=== PATIENT | female | born 1995 | race Caucasian/White ===

== ENCOUNTER 2018-01-31 11:28 | Emergency (ER) | payer BC ==
[2018-01-31] MEDS: ONDANSETRON 4 MG INJ IV (13:51)
[2018-01-31] MEDS: morphine 4 MG/ML VIAL IV (13:52)
[2018-01-31] MEDS: SOD CHLORIDE 0.9% 1,000 ML IV (13:52)
[2018-01-31 14:20] LABS: ADD MAN DIFF? NO
[2018-01-31 14:26] LABS: WHITE BLOOD COUNT 10.5 10^3/ul (4.8-10.8)
[2018-01-31 14:26] LABS: BASOPHIL # 0.1 10^3/ul (0.0-0.1); BASOPHILS % 0.7 % (0.0-2.0); EOSINOPHILS # 0.3 10^3/ul (0.0-0.5); EOSINOPHILS % 3.1 % (0.0-7.0); HEMATOCRIT 44.9 % (37.0-47.0); HEMOGLOBIN 14.8 g/dl (12.0-16.0); LYMPHOCYTES # 3.3 10^3/ul (0.8-2.9); LYMPHOCYTES % 31.6 % (15.0-51.0); MEAN CORPUSCULAR HEMOGLOBIN 29.5 pg (29.0-33.0); MEAN CORPUSCULAR VOLUME 89.6 fl (82.0-101.0); MEAN PLATELET VOLUME 12.2 fl (7.4-10.4); MONOCYTE # 0.5 10^3/ul (0.3-0.9); MONOCYTES % 5.1 % (0.0-11.0); NEUTROPHIL # 6.2 10^3/ul (1.6-7.5); NEUTROPHILS % 59.2 % (39.0-77.0); PLATELET COUNT 300 10^3/UL (140-415); RED BLOOD COUNT 5.01 10^6/ul (4.20-5.40); RED CELL DISTRIBUTION WIDTH 12.2 % (11.5-14.5)
[2018-01-31] MEDS: KETOROLAC 30 MG INJ IV (14:28)
[2018-01-31 14:42] LABS: ALANINE AMINOTRANSFERASE 70 IU/L (13-69); ALBUMIN 5.3 g/dl (3.3-4.9); ALBUMIN/GLOBULIN RATIO 1.23; ALKALINE PHOSPHATASE 74 IU/L (42-121); ANION GAP 20 (8-16); ASPARTATE AMINO TRANSFERASE 57 IU/L (15-46); BILIRUBIN,INDIRECT 0.3 mg/dl (0-1.1); BILIRUBIN,TOTAL 0.3 mg/dl (0.2-1.3); BLOOD UREA NITROGEN 13 mg/dl (7-20); CARBON DIOXIDE 25 mmol/L (21-31); CHLORIDE 105 mmol/L (97-110); CREATININE 0.59 mg/dl (0.44-1.00); GLUCOSE 90 mg/dl (70-220); LIPASE 51 U/L (23-300); POTASSIUM 4.5 mmol/L (3.5-5.1); SODIUM 145 mmol/L (135-144); TOTAL PROTEIN 9.6 g/dl (6.1-8.1)
[2018-01-31] MEDS: morphine 2 MG INJ IV (15:52)
[2018-01-31 15:55] LABS: ADD UMIC YES; UR ASCORBIC ACID NEGATIVE (NEGATIVE); UR BILIRUBIN (Dip) NEGATIVE (NEGATIVE); UR BLOOD (Dip) 1+ mg/dL (NEGATIVE); UR CLARITY CLEAR (CLEAR); UR COLOR YELLOW (YELLOW); UR GLUCOSE (Dip) NEGATIVE (NEGATIVE); UR KETONES (Dip) NEGATIVE (NEGATIVE); UR LEUKOCYTE ESTERASE (Dip) NEGATIVE Leu/ul (NEGATIVE); UR MUCUS FEW /HPF (NONE SEEN); UR NITRITE (Dip) NEGATIVE (NEGATIVE); UR RBC 2 /HPF (0-5); UR SPECIFIC GRAVITY (Dip) 1.018 (1.003-1.030); UR TOTAL PROTEIN (Dip) NEGATIVE (NEGATIVE); UR UROBILINOGEN (Dip) NEGATIVE (NEGATIVE); UR WBC 1 /HPF (0-5)
== END 2018-01-31 16:35 | disposition home or self-care (01) ==
LOC: FTE 11:28
DX: R51 Headache (principal); R68.83 Chills (without fever)
CPT/HCPCS: 70450; 80053; 81001; 81025; 83690; 84703; 85025; 87400; 96374; 96375; 96376; 99285-25

== ENCOUNTER 2018-02-04 13:29 | Emergency (ER) | payer BC ==
[2018-02-04] MEDS: DICYCLOMINE 10 MG CAP PO (15:32)
[2018-02-04] MEDS: ONDANSETRON 4 MG INJ IV (15:32)
[2018-02-04] MEDS: SOD CHLORIDE 0.9% 1,000 ML IV (15:32)
[2018-02-04] MEDS: HYDROmorphONE 0.5 MG/0.5 ML SYG IV (15:33)
[2018-02-04 15:40] LABS: ADD UMIC YES; UR ASCORBIC ACID NEGATIVE (NEGATIVE); UR BACTERIA FEW /HPF (NONE SEEN); UR BILIRUBIN (Dip) NEGATIVE (NEGATIVE); UR BLOOD (Dip) 1+ mg/dL (NEGATIVE); UR CLARITY SLIGHTLY CLOUDY (CLEAR); UR COLOR YELLOW (YELLOW); UR GLUCOSE (Dip) NEGATIVE (NEGATIVE); UR KETONES (Dip) NEGATIVE (NEGATIVE); UR LEUKOCYTE ESTERASE (Dip) 3+ Leu/ul (NEGATIVE); UR MUCUS FEW /HPF (NONE SEEN); UR NITRITE (Dip) NEGATIVE (NEGATIVE); UR RBC 1 /HPF (0-5); UR SQUAMOUS EPITHELIAL CELL MODERATE /HPF (FEW); UR TOTAL PROTEIN (Dip) 1+ mg/dl (NEGATIVE); UR UROBILINOGEN (Dip) NEGATIVE (NEGATIVE); UR WBC 5 /HPF (0-5)
[2018-02-04 15:47] LABS: ADD MAN DIFF? NO
[2018-02-04 15:48] LABS: WHITE BLOOD COUNT 10.2 10^3/ul (4.8-10.8)
[2018-02-04 15:48] LABS: BASOPHIL # 0.1 10^3/ul (0.0-0.1); BASOPHILS % 0.9 % (0.0-2.0); EOSINOPHILS # 0.2 10^3/ul (0.0-0.5); EOSINOPHILS % 1.8 % (0.0-7.0); HEMOGLOBIN 12.8 g/dl (12.0-16.0); LYMPHOCYTES # 3.6 10^3/ul (0.8-2.9); LYMPHOCYTES % 35.7 % (15.0-51.0); MEAN CORPUSCULAR HEMOGLOBIN 30.3 pg (29.0-33.0); MEAN CORPUSCULAR HGB CONC 34.6 g/dl (32.0-37.0); MEAN CORPUSCULAR VOLUME 87.5 fl (82.0-101.0); MEAN PLATELET VOLUME 10.7 fl (7.4-10.4); MONOCYTE # 0.6 10^3/ul (0.3-0.9); NEUTROPHIL # 5.7 10^3/ul (1.6-7.5); NEUTROPHILS % 55.4 % (39.0-77.0); PLATELET COUNT 323 10^3/UL (140-415); RED BLOOD COUNT 4.23 10^6/ul (4.20-5.40); RED CELL DISTRIBUTION WIDTH 12.4 % (11.5-14.5)
[2018-02-04 16:09] LABS: ALANINE AMINOTRANSFERASE 46 IU/L (13-69); ALBUMIN 4.5 g/dl (3.3-4.9); ALBUMIN/GLOBULIN RATIO 1.45; ALKALINE PHOSPHATASE 53 IU/L (42-121); ANION GAP 18 (8-16); ASPARTATE AMINO TRANSFERASE 25 IU/L (15-46); BLOOD UREA NITROGEN 12 mg/dl (7-20); CALCIUM 9.6 mg/dl (8.4-10.2); CARBON DIOXIDE 27 mmol/L (21-31); CHLORIDE 105 mmol/L (97-110); CREATININE 0.55 mg/dl (0.44-1.00); GLUCOSE 79 mg/dl (70-220); SODIUM 146 mmol/L (135-144); TOTAL PROTEIN 7.6 g/dl (6.1-8.1)
[2018-02-04 16:38] LABS: LIPASE 83 U/L (23-300)
== END 2018-02-04 17:53 | disposition home or self-care (01) ==
LOC: FTE 13:29
DX: R10.11 Right upper quadrant pain (principal)
CPT/HCPCS: 36415; 76705; 80053; 81001; 81025; 83690; 85025; 96374; 96375; 99285-25

== ENCOUNTER 2018-02-05 00:59 | Emergency (ER) | payer SELFPAY, BC | END 2018-02-05 04:30 | disposition left against medical advice (07) | LOC: E/R 00:59 | DX: Z53.21 Procedure and treatment not carried out due to patient leaving prior to being seen by health care provider (principal) ==

== ENCOUNTER 2018-03-28 09:22 | Inpatient (IN) | payer BC ==
[2018-03-28 10:42] LABS: ADD MAN DIFF? NO
[2018-03-28 10:44] LABS: BASOPHIL # 0.1 10^3/ul (0.0-0.1); BASOPHILS % 0.8 % (0.0-2.0); EOSINOPHILS % 11.1 % (0.0-7.0); HEMATOCRIT 36.6 % (37.0-47.0); HEMOGLOBIN 12.5 g/dl (12.0-16.0); LYMPHOCYTES # 2.4 10^3/ul (0.8-2.9); LYMPHOCYTES % 27.2 % (15.0-51.0); MEAN CORPUSCULAR HEMOGLOBIN 30.9 pg (29.0-33.0); MEAN CORPUSCULAR HGB CONC 34.2 g/dl (32.0-37.0); MEAN CORPUSCULAR VOLUME 90.4 fl (82.0-101.0); MEAN PLATELET VOLUME 11.1 fl (7.4-10.4); MONOCYTE # 0.5 10^3/ul (0.3-0.9); MONOCYTES % 5.4 % (0.0-11.0); NEUTROPHIL # 4.9 10^3/ul (1.6-7.5); NEUTROPHILS % 55.3 % (39.0-77.0); PLATELET COUNT 312 10^3/UL (140-415); RED BLOOD COUNT 4.05 10^6/ul (4.20-5.40); RED CELL DISTRIBUTION WIDTH 12.6 % (11.5-14.5)
[2018-03-28 10:44] LABS: WHITE BLOOD COUNT 8.8 10^3/ul (4.8-10.8)
[2018-03-28] MEDS: CEFAZOLIN 2 GM/50 ML (PMX) 50 ML IVPB ×2 (11:00→20:00)
[2018-03-28 11:01] LABS: GLUCOSE 100 mg/dl (70-220)
[2018-03-28] MEDS ORDERED: ROPIVACAINE 0.5 % 30 ML VIAL (12:00)
[2018-03-28] MEDS ORDERED: DEXAMETHASONE 4 MG/ML 1 ML INJ (12:00)
[2018-03-28] MEDS ORDERED: LIDOCAINE 2% (SDV) 5 ML INJ (12:00)
[2018-03-28] MEDS ORDERED: CEFAZOLIN 1 GM INJ (12:00)
[2018-03-28] MEDS ORDERED: PROPOFOL 200 MG INJ (12:00)
[2018-03-28] MEDS ORDERED: PROPOFOL 20 ML ×2 (12:03→13:42)
[2018-03-28] MEDS ORDERED: FENTAnyl 50 MCG/ML VIAL (13:51)
[2018-03-28] MEDS ORDERED: DIPHENHYDRAMINE 50 MG INJ (14:40)
[2018-03-28] MEDS: DIPHENHYDRAMINE 50 MG INJ IV (14:58)
[2018-03-28] MEDS ORDERED: NALOXONE (0.4 MG/ML) INJ IV (15:00)
[2018-03-28] MEDS ORDERED: METOCLOPRAMIDE 10 MG INJ IV (15:00)
[2018-03-28] MEDS ORDERED: ONDANSETRON 4 MG INJ IV ×2 (15:00)
[2018-03-28] MEDS ORDERED: OXYCODONE/ACETAMINOPHEN (5/325) TAB PO (15:00)
[2018-03-28] MEDS ORDERED: CEFAZOLIN 1 GM/50 ML (PMX) 50 ML IVPB (15:00)
[2018-03-28] MEDS ORDERED: HYDROmorphONE (0.2 MG/ML) 10ML SYG IV (15:00)
[2018-03-28] MEDS ORDERED: FENTAnyl 50 MCG/ML VIAL IV ×2 (15:00)
[2018-03-28] MEDS: HYDROmorphONE (0.2 MG/ML) 10ML SYG IV ×2 (15:02→15:24)
[2018-03-28] MEDS: HYDROmorphONE 0.5 MG/0.5 ML SYG IV ×3 (16:23→21:48)
[2018-03-28] MEDS: HYDROCODONE/APAP (10/325) TAB GTB (18:14)
[2018-03-28] MEDS ORDERED: KETOROLAC 15 MG INJ IV (20:30)
[2018-03-28] MEDS: CYCLOBENZAPRINE 10 MG TAB PO (20:47)
[2018-03-28] MEDS: oxyCODONE 5 MG TAB PO (21:19)
[2018-03-28] MEDS: morphine (ER) 15 MG TAB PO (22:50)
[2018-03-29] MEDS ORDERED: DIAZEPAM 5 MG TAB PO (01:30)
[2018-03-29] MEDS: HYDROmorphONE 0.5 MG/0.5 ML SYG IV ×8 (01:30→21:55)
[2018-03-29] MEDS: CEFAZOLIN 2 GM/50 ML (PMX) 50 ML IVPB (03:17)
[2018-03-29] MEDS: oxyCODONE 5 MG TAB PO ×3 (03:17→19:46)
[2018-03-29] MEDS: morphine (ER) 15 MG TAB PO (08:57)
[2018-03-29] MEDS: CYCLOBENZAPRINE 10 MG TAB PO (10:23)
[2018-03-29] MEDS ORDERED: DOCUSATE SODIUM 100 MG CAP PO (12:00)
[2018-03-29] MEDS: GABAPENTIN 100 MG CAP PO ×2 (15:10→20:49)
[2018-03-29] MEDS: morphine (ER) 30 MG TAB PO (20:49)
[2018-03-30] MEDS: HYDROmorphONE 0.5 MG/0.5 ML SYG IV ×8 (01:37→23:31)
[2018-03-30] MEDS: GABAPENTIN 100 MG CAP PO ×3 (08:30→20:45)
[2018-03-30] MEDS: morphine (ER) 30 MG TAB PO ×2 (08:35→20:41)
[2018-03-30] MEDS: oxyCODONE 5 MG TAB PO ×2 (14:11→20:41)
[2018-03-30] MEDS: CYCLOBENZAPRINE 10 MG TAB PO (23:30)
[2018-03-31] MEDS: HYDROmorphONE 0.5 MG/0.5 ML SYG IV ×4 (08:14→22:28)
[2018-03-31] MEDS: GABAPENTIN 100 MG CAP PO ×3 (08:15→20:39)
[2018-03-31] MEDS: morphine (ER) 30 MG TAB PO ×2 (09:48→20:40)
[2018-03-31] MEDS: oxyCODONE 5 MG TAB PO ×3 (11:19→23:38)
[2018-03-31] MEDS: CYCLOBENZAPRINE 10 MG TAB PO (21:35)
[2018-03-31] MEDS: traMADol 50 MG TAB PO (21:38)
[2018-04-01] MEDS: HYDROmorphONE 0.5 MG/0.5 ML SYG IV ×9 (01:17→23:34)
[2018-04-01] MEDS: oxyCODONE 5 MG TAB PO ×3 (05:05→18:43)
[2018-04-01] MEDS: morphine (ER) 30 MG TAB PO ×2 (08:48→21:58)
[2018-04-01] MEDS: GABAPENTIN 100 MG CAP PO ×3 (08:48→20:37)
[2018-04-01] MEDS: HEPARIN 5,000 UNIT/0.5 ML VIAL SC ×2 (14:54→21:59)
[2018-04-01 15:17] LABS: ADD MAN DIFF? NO
[2018-04-01 15:20] LABS: BASOPHIL # 0.1 10^3/ul (0.0-0.1); EOSINOPHILS # 0.4 10^3/ul (0.0-0.5); EOSINOPHILS % 4.7 % (0.0-7.0); HEMATOCRIT 40.2 % (37.0-47.0); HEMOGLOBIN 13.3 g/dl (12.0-16.0); LYMPHOCYTES % 37.6 % (15.0-51.0); MEAN CORPUSCULAR HEMOGLOBIN 30.2 pg (29.0-33.0); MEAN CORPUSCULAR HGB CONC 33.1 g/dl (32.0-37.0); MEAN CORPUSCULAR VOLUME 91.4 fl (82.0-101.0); MEAN PLATELET VOLUME 11.1 fl (7.4-10.4); MONOCYTE # 0.4 10^3/ul (0.3-0.9); NEUTROPHIL # 4.1 10^3/ul (1.6-7.5); NEUTROPHILS % 51.5 % (39.0-77.0); PLATELET COUNT 394 10^3/UL (140-415); RED CELL DISTRIBUTION WIDTH 12.4 % (11.5-14.5)
[2018-04-02] MEDS: HYDROmorphONE 0.5 MG/0.5 ML SYG IV ×3 (04:58→12:52)
[2018-04-02] MEDS: HEPARIN 5,000 UNIT/0.5 ML VIAL SC ×3 (06:10→21:59)
[2018-04-02] MEDS: oxyCODONE 5 MG TAB PO ×3 (06:15→20:45)
[2018-04-02] MEDS: GABAPENTIN 100 MG CAP PO ×3 (09:27→20:46)
[2018-04-02] MEDS: morphine (ER) 30 MG TAB PO ×2 (09:28→20:46)
[2018-04-02] MEDS: traMADol 50 MG TAB PO (16:49)
[2018-04-02] MEDS: CYCLOBENZAPRINE 10 MG TAB PO (16:49)
[2018-04-03] MEDS: oxyCODONE 5 MG TAB PO ×2 (02:45→10:35)
[2018-04-03] MEDS: HEPARIN 5,000 UNIT/0.5 ML VIAL SC ×2 (06:08→13:32)
[2018-04-03] MEDS: morphine (ER) 30 MG TAB PO (09:20)
[2018-04-03] MEDS: GABAPENTIN 100 MG CAP PO ×2 (09:20→13:32)
== END 2018-04-03 15:15 | disposition home or self-care (01) | DRG 505 ==
LOC: SDS 09:22 → MS1 16:18 → SDS 16:03 → MS1 16:03
PROVIDERS: Orthopaedic Surgery
PROC: 0QSL04Z Reposition Right Tarsal with Internal Fixation Device, Open Approach (ICD-10-PCS; principal; 2018-03-28 11:29)
DX: S92.141A Displaced dome fracture of right talus, initial encounter for closed fracture (principal); V89.2XXA Person injured in unspecified motor-vehicle accident, traffic, initial encounter; G89.18 Other acute postprocedural pain
CPT/HCPCS: 73610-RT; 82947; 84703; 85025; 97110; 97162; 97530

== ENCOUNTER 2018-04-12 11:46 | Inpatient (IN) | payer BC ==
[2018-04-12] MEDS: HYDROmorphONE 1 MG/5 ML IV SYRINGE IV (12:33)
[2018-04-12] MEDS: ONDANSETRON 4 MG INJ IV ×3 (12:33→20:51)
[2018-04-12] MEDS: HYDROmorphONE 0.5 MG/0.5 ML SYG IM (13:26)
[2018-04-12 13:32] LABS: ADD MAN DIFF? NO
[2018-04-12 13:34] LABS: BASOPHIL # 0.1 10^3/ul (0.0-0.1); BASOPHILS % 0.9 % (0.0-2.0); EOSINOPHILS # 0.6 10^3/ul (0.0-0.5); EOSINOPHILS % 8.1 % (0.0-7.0); HEMATOCRIT 40.2 % (37.0-47.0); HEMOGLOBIN 13.3 g/dl (12.0-16.0); LYMPHOCYTES # 2.4 10^3/ul (0.8-2.9); LYMPHOCYTES % 35.1 % (15.0-51.0); MEAN CORPUSCULAR HEMOGLOBIN 30.2 pg (29.0-33.0); MEAN CORPUSCULAR HGB CONC 33.1 g/dl (32.0-37.0); MEAN CORPUSCULAR VOLUME 91.2 fl (82.0-101.0); MEAN PLATELET VOLUME 10.6 fl (7.4-10.4); MONOCYTE # 0.4 10^3/ul (0.3-0.9); MONOCYTES % 5.8 % (0.0-11.0); NEUTROPHIL # 3.4 10^3/ul (1.6-7.5); NEUTROPHILS % 49.8 % (39.0-77.0); PLATELET COUNT 377 10^3/UL (140-415); RED BLOOD COUNT 4.41 10^6/ul (4.20-5.40); RED CELL DISTRIBUTION WIDTH 12.1 % (11.5-14.5)
[2018-04-12 13:34] LABS: WHITE BLOOD COUNT 6.8 10^3/ul (4.8-10.8)
[2018-04-12 13:51] LABS: ALANINE AMINOTRANSFERASE 40 IU/L (13-69); ALBUMIN 4.5 g/dl (3.3-4.9); ALBUMIN/GLOBULIN RATIO 1.15; ALKALINE PHOSPHATASE 69 IU/L (42-121); ANION GAP 18 (8-16); ASPARTATE AMINO TRANSFERASE 34 IU/L (15-46); BILIRUBIN,INDIRECT 0.3 mg/dl (0-1.1); BILIRUBIN,TOTAL 0.3 mg/dl (0.2-1.3); BLOOD UREA NITROGEN 9 mg/dl (7-20); CALCIUM 9.6 mg/dl (8.4-10.2); CARBON DIOXIDE 26 mmol/L (21-31); CHLORIDE 106 mmol/L (97-110); CREATININE 0.56 mg/dl (0.44-1.00); GLUCOSE 107 mg/dl (70-220); LIPASE 133 U/L (23-300); POTASSIUM 4.3 mmol/L (3.5-5.1); SODIUM 146 mmol/L (135-144); TOTAL PROTEIN 8.4 g/dl (6.1-8.1)
[2018-04-12] MEDS: SOD CHLORIDE 0.9% 1,000 ML IV ×3 (16:05→21:09)
[2018-04-12] MEDS: HYDROmorphONE 0.5 MG/0.5 ML SYG IV ×3 (16:27→23:38)
[2018-04-12] MEDS ORDERED: ACETAMINOPHEN 325 MG TAB PO ×2 (16:30→18:30)
[2018-04-12] MEDS ORDERED: NACL 0.9% 3 ML SYG IV (16:30)
[2018-04-12 16:52] LABS: INR 0.88; PT RATIO 0.9
[2018-04-12] MEDS: LEVOFLOXACIN 500MG/D5W (PMX) 100 ML IVPB (16:52)
[2018-04-12 16:53] LABS: PARTIAL THROMBOPLASTIN TIME 25.9 Sec (25.0-35.0)
[2018-04-12] MEDS ORDERED: ONDANSETRON 4 MG INJ IV (18:30)
[2018-04-12 19:36] LABS: ADD UMIC YES; UR ASCORBIC ACID NEGATIVE (NEGATIVE); UR BACTERIA FEW /HPF (NONE SEEN); UR BILIRUBIN (Dip) NEGATIVE (NEGATIVE); UR BLOOD (Dip) NEGATIVE (NEGATIVE); UR CLARITY SLIGHTLY CLOUDY (CLEAR); UR COLOR YELLOW (YELLOW); UR GLUCOSE (Dip) NEGATIVE (NEGATIVE); UR KETONES (Dip) NEGATIVE (NEGATIVE); UR LEUKOCYTE ESTERASE (Dip) 2+ Leu/ul (NEGATIVE); UR NITRITE (Dip) NEGATIVE (NEGATIVE); UR RBC 0 /HPF (0-5); UR SPECIFIC GRAVITY (Dip) 1.019 (1.003-1.030); UR SQUAMOUS EPITHELIAL CELL FEW /HPF (FEW); UR TOTAL PROTEIN (Dip) NEGATIVE (NEGATIVE); UR UROBILINOGEN (Dip) NEGATIVE (NEGATIVE); UR WBC 4 /HPF (0-5)
[2018-04-12] MEDS: metroNIDAZOLE 500 MG/NS (PMX) 100 ML IVPB (21:09)
[2018-04-13] MEDS: metroNIDAZOLE 500 MG/NS (PMX) 100 ML IVPB ×3 (04:56→22:06)
[2018-04-13] MEDS: PANTOPRAZOLE 40 MG INJ IV (04:56)
[2018-04-13] MEDS: HYDROmorphONE 0.5 MG/0.5 ML SYG IV ×5 (04:56→22:07)
[2018-04-13 06:44] LABS: ALANINE AMINOTRANSFERASE 44 IU/L (13-69); ALBUMIN 3.6 g/dl (3.3-4.9); ALBUMIN/GLOBULIN RATIO 1.16; ALKALINE PHOSPHATASE 52 IU/L (42-121); ANION GAP 13 (8-16); ASPARTATE AMINO TRANSFERASE 27 IU/L (15-46); BILIRUBIN,INDIRECT 0.1 mg/dl (0-1.1); BILIRUBIN,TOTAL 0.1 mg/dl (0.2-1.3); BLOOD UREA NITROGEN 13 mg/dl (7-20); CALCIUM 8.8 mg/dl (8.4-10.2); CARBON DIOXIDE 28 mmol/L (21-31); CHLORIDE 108 mmol/L (97-110); CREATININE 0.68 mg/dl (0.44-1.00); GLUCOSE 97 mg/dl (70-220); SODIUM 145 mmol/L (135-144); TOTAL PROTEIN 6.7 g/dl (6.1-8.1)
[2018-04-13] MEDS: DEXTROSE 5% 1,000 ML IV (11:44)
[2018-04-13] MEDS ORDERED: LORAZEPAM 2 MG INJ IV (13:30)
[2018-04-13] MEDS: morphine 2 MG INJ IV (16:17)
[2018-04-13] MEDS: LEVOFLOXACIN 500MG/D5W (PMX) 100 ML IVPB (16:43)
[2018-04-14] MEDS: OXYCODONE/ACETAMINOPHEN (5/325) TAB PO ×3 (00:17→20:01)
[2018-04-14] MEDS: HYDROmorphONE 0.5 MG/0.5 ML SYG IV ×5 (01:48→21:01)
[2018-04-14] MEDS: DEXTROSE 5%-0.45% NACL 1,000 ML IV (01:49)
[2018-04-14] MEDS: metroNIDAZOLE 500 MG/NS (PMX) 100 ML IVPB ×3 (06:11→23:16)
[2018-04-14] MEDS: PANTOPRAZOLE 40 MG INJ IV (06:11)
[2018-04-14 06:12] LABS: ADD MAN DIFF? NO
[2018-04-14 06:15] LABS: WHITE BLOOD COUNT 6.6 10^3/ul (4.8-10.8)
[2018-04-14 06:15] LABS: BASOPHIL # 0.1 10^3/ul (0.0-0.1); BASOPHILS % 0.8 % (0.0-2.0); EOSINOPHILS # 0.3 10^3/ul (0.0-0.5); EOSINOPHILS % 4.2 % (0.0-7.0); HEMOGLOBIN 12.9 g/dl (12.0-16.0); LYMPHOCYTES % 44.9 % (15.0-51.0); MEAN CORPUSCULAR HEMOGLOBIN 30.1 pg (29.0-33.0); MEAN CORPUSCULAR HGB CONC 33.1 g/dl (32.0-37.0); MEAN CORPUSCULAR VOLUME 91.1 fl (82.0-101.0); MEAN PLATELET VOLUME 11.1 fl (7.4-10.4); MONOCYTE # 0.4 10^3/ul (0.3-0.9); MONOCYTES % 6.2 % (0.0-11.0); NEUTROPHIL # 2.9 10^3/ul (1.6-7.5); NEUTROPHILS % 43.6 % (39.0-77.0); PLATELET COUNT 288 10^3/UL (140-415); RED BLOOD COUNT 4.28 10^6/ul (4.20-5.40); RED CELL DISTRIBUTION WIDTH 12.2 % (11.5-14.5)
[2018-04-14 06:52] LABS: ALANINE AMINOTRANSFERASE 53 IU/L (13-69); ALBUMIN 3.9 g/dl (3.3-4.9); ALBUMIN/GLOBULIN RATIO 1.18; ALKALINE PHOSPHATASE 55 IU/L (42-121); ANION GAP 16 (8-16); ASPARTATE AMINO TRANSFERASE 47 IU/L (15-46); BILIRUBIN,INDIRECT 0.2 mg/dl (0-1.1); BILIRUBIN,TOTAL 0.2 mg/dl (0.2-1.3); BLOOD UREA NITROGEN 9 mg/dl (7-20); CALCIUM 9.8 mg/dl (8.4-10.2); CARBON DIOXIDE 27 mmol/L (21-31); CHLORIDE 106 mmol/L (97-110); CREATININE 0.58 mg/dl (0.44-1.00); GLUCOSE 100 mg/dl (70-220); POTASSIUM 4.1 mmol/L (3.5-5.1); SODIUM 145 mmol/L (135-144); TOTAL PROTEIN 7.2 g/dl (6.1-8.1)
[2018-04-14] MEDS: DEXTROSE 5% 1,000 ML IV (07:30)
[2018-04-14] MEDS: ONDANSETRON 4 MG INJ IV (12:57)
[2018-04-14] MEDS: FLUOXETINE 20 MG CAP PO (15:52)
[2018-04-14] MEDS: LEVOFLOXACIN 500MG/D5W (PMX) 100 ML IVPB (15:52)
[2018-04-15] MEDS: HYDROmorphONE 0.5 MG/0.5 ML SYG IV ×6 (01:09→22:31)
[2018-04-15] MEDS: DEXTROSE 5% 1,000 ML IV ×2 (03:30→16:03)
[2018-04-15] MEDS: PANTOPRAZOLE 40 MG INJ IV (05:56)
[2018-04-15] MEDS: metroNIDAZOLE 500 MG/NS (PMX) 100 ML IVPB (05:56)
[2018-04-15] MEDS ORDERED: HYDROCODONE/APAP (5/325) TAB PO (07:30)
[2018-04-15] MEDS: FLUOXETINE 20 MG CAP PO (08:34)
[2018-04-15] MEDS ORDERED: LIDOCAINE 2% (SDV) 5 ML INJ (11:03)
[2018-04-15] MEDS ORDERED: PROPOFOL 20 ML (11:03)
[2018-04-15] MEDS ORDERED: ROCURONIUM 50 MG INJ ×2 (11:03→11:58)
[2018-04-15] MEDS ORDERED: SUCCINYLCHOLINE CHLORIDE 100 MG/5 ML SYG IV (11:03)
[2018-04-15] MEDS ORDERED: MIDAZOLAM 1 MG/ML 2 ML INJ (11:04)
[2018-04-15] MEDS ORDERED: FENTAnyl 50 MCG/ML VIAL (11:06)
[2018-04-15] MEDS ORDERED: PHENYLephrine (100 MCG/ML) 5ML SYG (11:19)
[2018-04-15] MEDS ORDERED: ONDANSETRON 4 MG INJ (11:29)
[2018-04-15] MEDS ORDERED: DEXAMETHASONE 4 MG/ML 1 ML INJ (11:29)
[2018-04-15] MEDS ORDERED: FAMOTIDINE 20 MG INJ (11:29)
[2018-04-15] MEDS ORDERED: HYDROmorphONE 2 MG/ML SYG (11:29)
[2018-04-15] MEDS: BUPIVACAINE 0.25% (MPF) 30 ML INJ (11:35)
[2018-04-15] MEDS: LIDOCAINE 1%/EPI 30 ML INJ (11:35)
[2018-04-15] MEDS ORDERED: ACETAMINOPHEN 1000MG/100ML IV 100 ML (11:59)
[2018-04-15] MEDS ORDERED: HYDROmorphONE (0.2 MG/ML) 10ML SYG IV ×2 (12:00)
[2018-04-15] MEDS ORDERED: DIPHENHYDRAMINE 50 MG INJ IV (12:00)
[2018-04-15] MEDS ORDERED: MEPERIDINE 25 MG INJ IV (12:00)
[2018-04-15] MEDS ORDERED: FENTAnyl 50 MCG/ML VIAL IV ×3 (12:00)
[2018-04-15] MEDS ORDERED: ROPIVACAINE 0.5 % 30 ML VIAL (12:09)
[2018-04-15] MEDS ORDERED: SUGAMMADEX SODIUM 200 MG/2 ML VIAL IV ×2 (12:11→12:23)
[2018-04-15] MEDS: ONDANSETRON 4 MG INJ IV ×2 (13:05→16:12)
[2018-04-15] MEDS: HYDROmorphONE (0.2 MG/ML) 10ML SYG IV ×2 (13:05→13:33)
[2018-04-16] MEDS: HYDROmorphONE 0.5 MG/0.5 ML SYG IV ×4 (01:35→12:38)
[2018-04-16] MEDS: PANTOPRAZOLE 40 MG INJ IV (05:05)
[2018-04-16 05:48] LABS: ADD MAN DIFF? NO
[2018-04-16] MEDS: DEXTROSE 5% 1,000 ML IV ×2 (05:48→08:55)
[2018-04-16 06:00] LABS: WHITE BLOOD COUNT 11.6 10^3/ul (4.8-10.8)
[2018-04-16 06:00] LABS: BASOPHIL # 0.1 10^3/ul (0.0-0.1); BASOPHILS % 0.4 % (0.0-2.0); EOSINOPHILS # 0.1 10^3/ul (0.0-0.5); EOSINOPHILS % 0.8 % (0.0-7.0); HEMATOCRIT 37.4 % (37.0-47.0); HEMOGLOBIN 12.3 g/dl (12.0-16.0); LYMPHOCYTES # 4.5 10^3/ul (0.8-2.9); LYMPHOCYTES % 38.4 % (15.0-51.0); MEAN CORPUSCULAR HEMOGLOBIN 29.8 pg (29.0-33.0); MEAN CORPUSCULAR HGB CONC 32.9 g/dl (32.0-37.0); MEAN CORPUSCULAR VOLUME 90.6 fl (82.0-101.0); MEAN PLATELET VOLUME 10.7 fl (7.4-10.4); MONOCYTE # 0.7 10^3/ul (0.3-0.9); MONOCYTES % 6.4 % (0.0-11.0); NEUTROPHIL # 6.2 10^3/ul (1.6-7.5); NEUTROPHILS % 53.7 % (39.0-77.0); PLATELET COUNT 388 10^3/UL (140-415); RED BLOOD COUNT 4.13 10^6/ul (4.20-5.40); RED CELL DISTRIBUTION WIDTH 12.2 % (11.5-14.5)
[2018-04-16 06:22] LABS: ALANINE AMINOTRANSFERASE 94 IU/L (13-69); ALBUMIN 3.9 g/dl (3.3-4.9); ALBUMIN/GLOBULIN RATIO 1.21; ALKALINE PHOSPHATASE 60 IU/L (42-121); ANION GAP 13 (8-16); ASPARTATE AMINO TRANSFERASE 94 IU/L (15-46); BILIRUBIN,INDIRECT 0.2 mg/dl (0-1.1); BILIRUBIN,TOTAL 0.2 mg/dl (0.2-1.3); BLOOD UREA NITROGEN 10 mg/dl (7-20); CALCIUM 9.3 mg/dl (8.4-10.2); CARBON DIOXIDE 29 mmol/L (21-31); CHLORIDE 105 mmol/L (97-110); CREATININE 0.56 mg/dl (0.44-1.00); GLUCOSE 101 mg/dl (70-220); POTASSIUM 3.9 mmol/L (3.5-5.1); SODIUM 143 mmol/L (135-144); TOTAL PROTEIN 7.1 g/dl (6.1-8.1)
[2018-04-16] MEDS: FLUOXETINE 20 MG CAP PO (08:02)
[2018-04-16] MEDS ORDERED: HYDROmorphONE 2 MG/ML SYG IV (10:30)
[2018-04-16] MEDS ORDERED: morphine (ER) 30 MG TAB PO (11:00)
[2018-04-16] MEDS ORDERED: oxyCODONE 5 MG TAB PO (11:00)
[2018-04-16] MEDS: morphine (ER) 15 MG TAB PO ×2 (11:58→21:20)
[2018-04-16] MEDS: GABAPENTIN 100 MG CAP PO ×2 (12:39→21:20)
[2018-04-16] MEDS: HYDROmorphONE 2 MG/ML SYG IV (18:51)
[2018-04-17] MEDS: HYDROmorphONE 2 MG/ML SYG IV ×2 (01:04→08:25)
[2018-04-17] MEDS: PANTOPRAZOLE 40 MG INJ IV (05:56)
[2018-04-17 06:12] LABS: ADD MAN DIFF? NO
[2018-04-17 06:18] LABS: WHITE BLOOD COUNT 7.2 10^3/ul (4.8-10.8)
[2018-04-17 06:18] LABS: BASOPHIL # 0.1 10^3/ul (0.0-0.1); BASOPHILS % 0.8 % (0.0-2.0); EOSINOPHILS # 0.1 10^3/ul (0.0-0.5); EOSINOPHILS % 1.7 % (0.0-7.0); HEMATOCRIT 36.5 % (37.0-47.0); HEMOGLOBIN 12.2 g/dl (12.0-16.0); LYMPHOCYTES # 3.6 10^3/ul (0.8-2.9); MEAN CORPUSCULAR HEMOGLOBIN 30.7 pg (29.0-33.0); MEAN CORPUSCULAR HGB CONC 33.4 g/dl (32.0-37.0); MEAN CORPUSCULAR VOLUME 91.9 fl (82.0-101.0); MEAN PLATELET VOLUME 10.6 fl (7.4-10.4); MONOCYTE # 0.4 10^3/ul (0.3-0.9); MONOCYTES % 5.3 % (0.0-11.0); NEUTROPHILS % 42.1 % (39.0-77.0); PLATELET COUNT 315 10^3/UL (140-415); RED BLOOD COUNT 3.97 10^6/ul (4.20-5.40); RED CELL DISTRIBUTION WIDTH 12.3 % (11.5-14.5)
[2018-04-17 06:31] LABS: ALANINE AMINOTRANSFERASE 88 IU/L (13-69); ALBUMIN 3.7 g/dl (3.3-4.9); ALBUMIN/GLOBULIN RATIO 1.19; ALKALINE PHOSPHATASE 45 IU/L (42-121); ANION GAP 13 (8-16); ASPARTATE AMINO TRANSFERASE 59 IU/L (15-46); BILIRUBIN,INDIRECT 0.1 mg/dl (0-1.1); BILIRUBIN,TOTAL 0.1 mg/dl (0.2-1.3); BLOOD UREA NITROGEN 11 mg/dl (7-20); CALCIUM 9.3 mg/dl (8.4-10.2); CARBON DIOXIDE 31 mmol/L (21-31); CHLORIDE 106 mmol/L (97-110); CREATININE 0.66 mg/dl (0.44-1.00); GLUCOSE 112 mg/dl (70-220); POTASSIUM 3.8 mmol/L (3.5-5.1); SODIUM 146 mmol/L (135-144); TOTAL PROTEIN 6.8 g/dl (6.1-8.1)
[2018-04-17 06:49] LABS: MAGNESIUM 1.7 mg/dl (1.7-2.5)
[2018-04-17 06:49] LABS: PHOSPHORUS 5.7 mg/dl (2.5-4.9)
[2018-04-17] MEDS: GABAPENTIN 100 MG CAP PO ×2 (08:25→13:54)
[2018-04-17] MEDS: FLUOXETINE 20 MG CAP PO (08:25)
[2018-04-17] MEDS: morphine (ER) 15 MG TAB PO (10:36)
[2018-04-17] MEDS: HYDROCODONE/APAP (5/325) TAB PO (13:54)
== END 2018-04-17 16:10 | disposition home or self-care (01) | DRG 418 ==
LOC: MS2 04-13 14:55 → FTE 11:46 → MS2 18:22
PROC: 0FT44ZZ Resection of Gallbladder, Percutaneous Endoscopic Approach (ICD-10-PCS; principal; 2018-04-15 10:00)
DX: K80.44 Calculus of bile duct with chronic cholecystitis without obstruction (principal); Z68.42 Body mass index [BMI] 45.0-49.9, adult; E66.01 Morbid (severe) obesity due to excess calories
CPT/HCPCS: 36415; 74181; 76705; 80053; 81001; 81025; 83690; 83735; 84100; 85025; 85610; 85730; 87081; 88304; 96372; 96374; 96375; 96376; 99285-25

== ENCOUNTER 2018-04-25 20:08 | Emergency (ER) | payer BC ==
[2018-04-25 22:08] LABS: ADD UMIC YES; UR ASCORBIC ACID NEGATIVE (NEGATIVE); UR BILIRUBIN (Dip) 1+ mg/dL (NEGATIVE); UR BLOOD (Dip) NEGATIVE (NEGATIVE); UR CALCIUM OXALATE CRYSTAL FEW /HPF (NONE SEEN); UR CLARITY CLEAR (CLEAR); UR COLOR AMBER (YELLOW); UR GLUCOSE (Dip) NEGATIVE (NEGATIVE); UR KETONES (Dip) TRACE mg/dL (NEGATIVE); UR LEUKOCYTE ESTERASE (Dip) NEGATIVE Leu/ul (NEGATIVE); UR MUCUS MANY /HPF (NONE SEEN); UR NITRITE (Dip) NEGATIVE (NEGATIVE); UR RBC 5 /HPF (0-5); UR SPECIFIC GRAVITY (Dip) 1.049 (1.003-1.030); UR SQUAMOUS EPITHELIAL CELL FEW /HPF (FEW); UR TOTAL PROTEIN (Dip) 1+ mg/dl (NEGATIVE); UR UROBILINOGEN (Dip) 1+ mg/dL (NEGATIVE); UR WBC 1 /HPF (0-5)
[2018-04-25 22:17] LABS: ADD MAN DIFF? NO
[2018-04-25 22:20] LABS: WHITE BLOOD COUNT 9.9 10^3/ul (4.8-10.8)
[2018-04-25 22:20] LABS: BASOPHIL # 0.1 10^3/ul (0.0-0.1); BASOPHILS % 0.6 % (0.0-2.0); EOSINOPHILS # 0.2 10^3/ul (0.0-0.5); EOSINOPHILS % 2.2 % (0.0-7.0); HEMATOCRIT 38.8 % (37.0-47.0); HEMOGLOBIN 12.7 g/dl (12.0-16.0); LYMPHOCYTES # 3.1 10^3/ul (0.8-2.9); LYMPHOCYTES % 31.3 % (15.0-51.0); MEAN CORPUSCULAR HEMOGLOBIN 29.8 pg (29.0-33.0); MEAN CORPUSCULAR HGB CONC 32.7 g/dl (32.0-37.0); MEAN CORPUSCULAR VOLUME 91.1 fl (82.0-101.0); MONOCYTE # 0.6 10^3/ul (0.3-0.9); MONOCYTES % 5.5 % (0.0-11.0); NEUTROPHILS % 60.2 % (39.0-77.0); PLATELET COUNT 309 10^3/UL (140-415); RED BLOOD COUNT 4.26 10^6/ul (4.20-5.40); RED CELL DISTRIBUTION WIDTH 12.6 % (11.5-14.5)
[2018-04-25 22:32] LABS: CANNABINOIDS Positive (NEGATIVE); OPIATES Positive (NEGATIVE)
[2018-04-25 22:35] LABS: AMPHETAMINE/METHAMPHETAMINE Negative (NEGATIVE); BARBITURATES Negative (NEGATIVE); BENZODIAZEPINES Negative (NEGATIVE); COCAINE Negative (NEGATIVE)
[2018-04-25 22:38] LABS: ALANINE AMINOTRANSFERASE 49 IU/L (13-69); ALBUMIN 4.2 g/dl (3.3-4.9); ALBUMIN/GLOBULIN RATIO 1.16; ALKALINE PHOSPHATASE 59 IU/L (42-121); ANION GAP 13 (8-16); ASPARTATE AMINO TRANSFERASE 36 IU/L (15-46); BILIRUBIN,INDIRECT 0.3 mg/dl (0-1.1); BILIRUBIN,TOTAL 0.3 mg/dl (0.2-1.3); BLOOD UREA NITROGEN 14 mg/dl (7-20); CALCIUM 9.1 mg/dl (8.4-10.2); CARBON DIOXIDE 23 mmol/L (21-31); CHLORIDE 108 mmol/L (97-110); CREATININE 0.53 mg/dl (0.44-1.00); GLUCOSE 104 mg/dl (70-220); POTASSIUM 3.6 mmol/L (3.5-5.1); SODIUM 140 mmol/L (135-144); TOTAL PROTEIN 7.8 g/dl (6.1-8.1)
[2018-04-25 22:42] LABS: ACETAMINOPHEN < 10.0 ug/ml (10.0-30.0); ETHANOL < 10.0 mg/dl; SALICYLATE < 1.0 mg/dl (5.0-30.0)
[2018-04-25] MEDS: IBUPROFEN 600 MG TAB PO (23:21)
[2018-04-26] MEDS: HALOPERIDOL 5 MG INJ IM (00:03)
[2018-04-26] MEDS: DIPHENHYDRAMINE 50 MG INJ IM (00:23)
[2018-04-26] MEDS: LORAZEPAM 2 MG INJ IM (00:23)
[2018-04-26] MEDS: OXYCODONE/ACETAMINOPHEN (5/325) TAB PO (17:15)
== END 2018-04-26 18:38 | disposition left against medical advice (07) ==
LOC: E/R 20:08
DX: R45.851 Suicidal ideations (principal); G89.18 Other acute postprocedural pain; M25.571 Pain in right ankle and joints of right foot; E66.01 Morbid (severe) obesity due to excess calories; Z68.42 Body mass index [BMI] 45.0-49.9, adult
CPT/HCPCS: 36415; 80053; 80307; 81001; 84703; 85025; 96372; 99284-25

== ENCOUNTER 2018-07-15 23:37 | Emergency (ER) | payer BC ==
[2018-07-16] MEDS: LORAZEPAM 1 MG TAB PO (00:17)
[2018-07-16] MEDS: ACETAMINOPHEN 500 MG TAB PO (00:18)
[2018-07-16] MEDS: NAPROXEN 500 MG TAB PO (00:30)
== END 2018-07-16 01:58 | disposition home or self-care (01) ==
LOC: FTE 23:37
DX: R07.9 Chest pain, unspecified (principal)
CPT/HCPCS: 71046; 93005; 99283-25